=== PATIENT | female | born 1980 | race Hispanic/Latino ===

== ENCOUNTER 2018-10-16 05:49 | Observation (INO) | payer OTHER ==
[2018-10-10 13:17] LABS: Basophils % (Auto) 0.8 % (0.0-1.8); Eosinophils % (Auto) 0.9 % (0.0-4.3); Hematocrit 33.8 % (30.3-42.9); Hemoglobin 11.1 gm/dl (10.1-14.3); Lymphocytes % (Auto) 22.3 % (13.4-35.0); Mean Corpuscular HGB Conc 33 % (30-34); Mean Corpuscular Volume 84 fl (79-97); Monocytes # (Auto) 0.3 K/mm3 (0.0-0.8); Monocytes % (Auto) 7.6 % (0.0-7.3); Platelet Count 180 K/mm3 (140-440); Red Blood Count 4.03 M/mm3 (3.65-5.03); Red Cell Distribution Width 14.1 % (13.2-15.2)
--- NOTE | 2018-10-10 13:45 | Anesthesia Consultation ---
Anesthesia Consult and Med Hx Date of service: 10/16/18 - Airway Anesthetic Teeth Evaluation: Good ROM Head & Neck: Adequate Mental/Hyoid Distance: Adequate Mallampati Class: Class I Intubation Access Assessment: Probably Good - Pre-Operative Health Status ASA Pre-Surgery Classification: ASA2 Proposed Anesthetic Plan: General Nerve Block: TAP - Central Nervous System Hx Psychiatric Problems: No - Endocrine Hx Thyroid Disease: Yes (Thryoid nodules) - Hematic Hx Anemia: Yes - Other Systems Hx Cancer: No - Additional Comments Anesthesia Medical History Comments: Pt with thyroid nodules and goiter. Stable for several years-has annual MRI and she states unchanged from last years. No meds required. PE: Neck soft and supple; trachea appears midline. PAT nurse attempting to get thyroid MRI
--- NOTE | 2018-10-15 10:30 | History and Physical Report ---
History of Present Illness Date of examination: 10/10/18 Chief complaint: Menorrhagia History of present illness: This is a 38 years old female who presents with menstrual disorder. She complains of heavy bleeding, clotting and history of thyroid disease, but denies irregular menses, mid-cycle spotting, lack of menses, dysmenorrhea, history of ovarian cysts, history of fibroids, history of PCOS, history of bleeding disorder, lightheadedness, fatigue and cramping. Menstrual flow lasts > 7 days. Cycle interval varies however she bleeds 8-10 days with each cycle. Options have been reviewed and she desires to proceed with hysterectomy Vital Signs: Patient Profile: 38 Years Old Female LMP: 09/28/2018 Height: 69 inches (175.26 cm) Weight: 181 pounds BMI: 26.73 Menstrual History: LMP (date): 09/28/2018 Menarche: 11 On BCP's at conception: no Current Method of Contraception: BTL Date of Last Pap Smear: 01/24/2018 Past History : 3 Term Births: 3 Living Children: 3 # 1 Delivery date: 10/07/2011 Weeks Gestation: 39 Delivery type: Delivery location: [facility] weight: 7.13 Name: Dougie # 2 Delivery date: 2004 Weeks Gestation: 39 Delivery type: Delivery location: [facility] Sex: Female Name: Lisa # 3 Delivery date: 1997 Weeks Gestation: 39 Delivery type: Delivery location: [facility] Name: Noel RADIOACTIVITY TECHNICIAN History Uterine Surgery (not C/S): negative Operations: Breast Augmentation: C-sectionx2 Knee Arthroscopy (1995)(L) (L) 1999 (R) axillary surgery RADIOACTIVITY TECHNICIAN Surgery dx lsc Tubal Ligation Thyroid biopsies benign Abnormal PAP: positive Uterine Anomaly: negative TIN Exposure: negative Infertility: negative Infection History HIV Risk Eval: no TB exposure: no Personal hx. of genital herpes: yes Partner hx. of genital herpes: no Hx of STD: HSV Active Medications: None Current Allergies (reviewed today): CODEINE (Critical) Past Medical History: Reviewed history from 01/24/2018 and no changes required: Hyperhidrosis axillary Thyroid nodules benign Past Surgical History: Breast Augmentation: C-sectionx2 Knee Arthroscopy (1995)(L) (L) foot 1999 (R) axillary surgery RADIOACTIVITY TECHNICIAN Surgery dx lsc Tubal Ligation Thyroid biopsies benign Family History Summary: Reviewed history Last on 01/24/2018 and no changes required:10/15/2018 Other family member - Has No Family History of Biliary Tract Cancer - Entered On: 06/19/2015 Other family member - Has No Family History of Breast Cancer - Entered On: 06/19/2015 Other family member - Has No Family History of Brain Cancer - Entered On: 06/19/2015 Other family member - Has No Family History of Colon Cancer - Entered On: 06/19/2015 Other family member - Has No Family History of DVT/PE on OCP - Entered On: 06/19/2015 Other family member - Has No Family History of Kidney/Urinary Tract Cancer - Entered On: 06/19/2015 Other family member - Has No Family History of Ovarvian Cancer - Entered On: 06/19/2015 Other family member - Has No Family History of Pancreatic Cancer - Entered On: 06/19/2015 Other family member - Has No Family History of Stomach Cancer - Entered On: 06/19/2015 Other family member - Has No Family History of Small Bowel Cancer - Entered On: 06/19/2015 Other family member - Has No Family History of Uterine Cancer - Entered On: 06/19/2015 General Comments - FH: No Family History of Breast Cancer No Family History of Ovarian Cancer No Family History of DVT/PE on OCP No Family History of Colon Cancer Social History: Reviewed history from 06/19/2015 and no changes required: Patient is Smoking History: Patient has never smoked. Risk Factors: Smoked Tobacco Use: Never smoker Smokeless Tobacco Use: Never Passive smoke exposure: no Drug use: no HIV high-risk behavior: no Caffeine use: <1 drinks per day Alcohol use: no Exercise: no Seatbelt use: 100 % PAP Smear History: Date of Last PAP Smear: 01/24/2018 Review of Systems General Denies fever, chills, sweats, anorexia, fatigue, weakness, malaise, weight loss and sleep disorder. Complains of menorrhagia and abnormal vaginal bleeding. Denies vaginal discharge, incontinence, dysuria, hematuria, urinary frequency, amenorrhea, pelvic pain, genital sores, decreased libido, painful periods, painful sex, urinary urgency, hot flashes, vaginal dryness, vaginal itching and vaginal odor. CV Denies chest pains, palpitations, syncope, dyspnea on exertion, orthopnea, PND and peripheral edema. Resp Denies cough, dyspnea at rest, excessive sputum, hemoptysis, wheezing and pleurisy. GI Denies nausea, vomiting, diarrhea, constipation, change in bowel habits, abdominal pain, melena, hematochezia, jaundice, gas/bloating, indigestion/heartburn, dysphagia and odynophagia. Endo Denies cold intolerance, heat intolerance, polydipsia, polyphagia, polyuria and unusual weight change. Breast Denies left breast lump, right breast lump, nipple discharge, bloody dis charge from nipple, breast pain, abnormal mammogram and breast enlargement. MS Denies back pain, joint pain, joint swelling, muscle cramps, muscle weakness, stiffness, arthritis, sciatica, restless legs, leg pain at night and leg pain with exertion. Derm Denies rash, itching, dryness and suspicious lesions. Neuro Denies paralysis, paresthesias, headache, seizures, tremors, vertigo, transient blindness, frequent falls, frequent headaches and difficulty walking. Psych Denies depression, anxiety, irritability and mood swings. Eyes Denies blurring, diplopia, irritation, discharge, vision loss, eye pain and photophobia. ENT Denies earache, ear discharge, tinnitus, decreased hearing, nasal congestion, nosebleeds, sore throat and hoarseness. Allergy Denies urticaria, allergic rash, hay fever and recurrent infections. Heme Denies abnormal bruising, bleeding and enlarged lymph nodes. Physical Exam Appearance: well developed, well nourished, no acute distress Other Exams Lungs: no rales, rhonchi, or wheezes Heart: S1, S2, no murmur, rub, or gallop Abdomen: soft, non-tender, no masses, healed pfannestial incision Genitourinary Exam Vulva: normal, no lesions or discharge Urethral meatus: normal size and location, no lesions or discharge Urethra: no discharge Bladder: no cystocele Vagina: normal appearance, no discharge, lesions. No evidence of cystocele or rectocele. Cervix: normal appearance, no lesions, no discharge Uterus: fixed Adnexa: no masses or tenderness Impression & Recommendations: Problem # 1: Menorrhagia (ICD-626.2) (LCS31-M00.0) Labs and images reviewed. Diagnosis explained to patient . Questions answered. Discussed with patient various medical and surgical therapies common for treatment: Hormonal/medical therapy,endometrial ablation or hysterectomy. Orders: [facility] Vst Est [id number] ([id number]) Diagnosis explained to patient . Discussed with patient various medical, surgical and radiological therapies common for treatment including, but not limited to, ablation and hysterectomy. Discussed risks and benefits of laparotomy, laparoscopy, vaginal and robotic assisted approaches for hysterectomies. Patient desires definitive treatment in the form of robot assisted laparoscopic total hysterectomy. The risks and alternatives for this surgery were reviewed with the patient. She was informed of the risks of the surgery including, but not limited to, pain, infection, bleeding possibly heavy enough to require a blood transfusion with associated risks of infections (hepatitis and HIV) and transfusion reactions, possible damage to bowel, bladder or ureter(s). Patient understands that this surgery with make her sterile. Indications to abort a robotic/laparoscopic procedure and perform an open procedure were explained. She desireds ovarian conservation. She was informed she may require surgery later to have her ovaries removed for a benign or mailgnant condition. Pain expectations along with pre and postoperative pain management was discussed. Questions answered. The patient was instructed/informed the following: The normal length of hospital stay for this procedure. Nothing to eat or drink after midnight the evening prior to surgery. Clear liquids the day before surgery. Pre-op instruction sheets given. Wound care instructions given. Consent reviewed and signed. Patient voiced understanding and agrees with plan of care. Other Orders: Thyroid Stimulating Hormone (TSH) ([id number])([id number]) ([id number]) Medications and Allergies Allergies Allergy/AdvReac Type Severity Reaction Status Date / Time codeine Allergy N&V Verified 10/15/18 10:11 bandaids Allergy Blisters Uncoded 10/09/18 17:45 Home Medications Medication Instructions Recorded Confirmed Last Taken Type No Known Home Medications [No 10/09/18 10/09/18 Unknown History Reported Home Medications] Active Meds: Active Medications Celecoxib (Celebrex) 200 mg PO PREOP NR Stop: 10/16/18 09:00 Fentanyl (Sublimaze) 100 mcg IV ONCE PRN PRN Reason: sedation for nerve block Gabapentin (Neurontin) 300 mg PO PREOP NR Stop: 10/16/18 09:00 Lactated Ringer's (Lactated Ringers) 1,000 mls @ 100 mls/hr IV DIRECT ESTEFANY Cefazolin Sodium (Ancef/Sterile Water 2 Gm/20 Ml) 2 gm in 20 mls @ 80 mls/hr IV PREOP NR; Protocol Midazolam HCl (Versed) 2 mg IV PREOP NR Stop: 10/16/18 09:00 Exam Vital Signs Temp Pulse Resp BP Pulse Ox 97.6 F 68 18 138/85 100 10/10/18 13:00 10/10/18 13:00 10/10/18 13:00 10/10/18 13:00 10/10/18 13:00 Results - Labs 10/10/18 13:05 Assessment and Plan - Patient Problems (1) Menorrhagia Status: Chronic Qualifiers: Menorrahagia type: with regular cycle Qualified Code(s): N92.0 - Excessive and frequent menstruation with regular cycle Plan to address problem: Desires to proceed with hysterectomy
[~2018-10-16 05:49] MED LIST: ANCEF/STERILE WATER 2 GM/20 ML 2 GM/20 ML SYRINGE IV NR
[2018-10-16] MEDS ORDERED: SUBLIMAZE IV PRN (06:00)
[2018-10-16] MEDS ORDERED: NEURONTIN PO NR (06:00)
[2018-10-16] MEDS ORDERED: VERSED IV NR (06:00)
[2018-10-16] MEDS: LACTATED RINGERS 1,000 ML IV SCH ×2 (06:50→14:57)
[2018-10-16] MEDS ORDERED: MARCAINE-EPI 0.25%-1:200,000 INFILTRATI ONE (07:12)
[2018-10-16] MEDS ORDERED: XYLOCAINE 1% 20 mL ONE (07:12)
[2018-10-16] MEDS ORDERED: DECADRON ONE ×2 (07:12→08:51)
[2018-10-16] MEDS ORDERED: NEOSPORIN GU IR ONE ×2 (07:23→08:41)
[2018-10-16] MEDS ORDERED: XYLOCAINE MPF 2% ONE (07:27)
[2018-10-16] MEDS ORDERED: SUBLIMAZE ONE (07:27)
[2018-10-16] MEDS ORDERED: ZEMURON IV ONE (07:27)
[2018-10-16] MEDS ORDERED: DIPRIVAN 10 MG/ML IV ONE (07:28)
[2018-10-16] MEDS ORDERED: VERSED ONE (07:28)
--- NOTE | 2018-10-16 07:28 | Anesthesia Day of Surgery ---
Anesthesia Day of Surgery - Day of Surgery Patient Examined: Yes Patient H&P Reviewed: Yes Patient is NPO: Yes
[2018-10-16] MEDS ORDERED: NACL 0.9% IR ONE (08:42)
[2018-10-16] MEDS ORDERED: ZOFRAN ONE (08:51)
[2018-10-16] MEDS ORDERED: REGLAN ONE (08:51)
[2018-10-16] MEDS ORDERED: TORADOL ONE (09:15)
[2018-10-16] MEDS ORDERED: ROBINUL ONE (09:16)
[2018-10-16] MEDS ORDERED: BLOXIVERZ ONE (09:16)
[2018-10-16] MEDS ORDERED: LACTATED RINGERS 1,000 ML ONE (09:32)
--- NOTE | 2018-10-16 09:41 | Post Operative Note ---
Pre-op diagnosis: Menorrhagia Post-op diagnosis: same Findings: Grossly normal uterus, cervix, fallopian tubes; (L) paratubal cyst. pelvic adhesions Procedure: RALTH with GOVIND and (B) salpingectomy Anesthesia: GETA Surgeon: TITUS CASTILLO Estimated blood loss: minimal Pathology: list (uterus, cervix, (L) paratubal cyst, (B) fallopian tubes pelvic adhesions) Specimen disposition: to lab Condition: stable Disposition: PACU
[2018-10-16] MEDS ORDERED: DILAUDID ONE (09:51)
[2018-10-16] MEDS: DILAUDID IV PRN ×2 (10:05→10:15)
[2018-10-16] MEDS ORDERED: REGLAN PO PRN (10:57)
[2018-10-16] MEDS ORDERED: ZOFRAN IV PRN (10:57)
[2018-10-16] MEDS ORDERED: MORPHINE IV PRN (10:57)
[2018-10-16] MEDS ORDERED: REGLAN IV PRN (10:57)
[2018-10-16] MEDS ORDERED: NARCAN 0.4 MG/1 ML IV PRN (10:57)
[2018-10-16] MEDS ORDERED: ZOFRAN ODT PO PRN (10:57)
[2018-10-16] MEDS ORDERED: BENADRYL IV PRN (11:57)
--- NOTE | 2018-10-16 11:58 | Post Anesthesia Evaluation ---
- Post Anesthesia Evaluation Patient Participated: Yes Airway Patent: Yes Stable Respiratory Function: Yes Nausea/Vomiting: Yes (treated with IV antiemetics) Temp > 96.8F: Yes Pain Manageable: Yes Adequeate Hydration: Yes Anesthesia Complications: No
[2018-10-16] MEDS ORDERED: TRANSDERM-SCOP TD SCH (12:00)
[2018-10-16] MEDS ORDERED: ANCEF/NS 1 GM/50 ML 1 GM/50 ML BAG IV SCH (14:00)
[2018-10-16] MEDS: TORADOL IV SCH ×2 (14:54→21:45)
[2018-10-16] MEDS: ANCEF/NS 1 GM/50 ML 1 GM/50 ML BAG IV SCH ×2 (16:05→23:26)
[2018-10-16] MEDS: TYLENOL PO SCH ×2 (18:17→23:26)
--- NOTE | 2018-10-16 20:00 | Operative Report ---
Operative Report Operative Report: Date: 10/16/2018 Preoperative diagnosis: 1. Menorrhagia Postoperative diagnosis: 1. Menorrhagia Procedure: 1. Robot assisted laparoscopic total hysterectomy 2. Robotic-assisted laparoscopic bilateral salpingectomy Surgeon: Saray Collier MD Hot Box Spotter: Amparo Harrison CST Anesthesiologist: Dr. Benavides Anesthesia: General endotracheal anesthesia EBL: Approximately 100 mL Findings: Exam under anesthesia revealed cervix and uterus deviated to left. Uterus is sounded to 7 cm. Grossly normal interrupted bilateral fallopian tubes. Grossly normal ovaries. Procedure: Patient was taken to the OR and placed in the supine position. General anesthesia was induced and an oral gastric tube was placed. Her neck and head were placed on foam support. Foam eye protection with goggles were secured in place. Then foam face protection was placed and secured. Foam shoulder pads were then positioned on her shoulders for Trendelenburg positioning. She was then placed in dorsolithotomy position. Exam under anesthesia the above. The abdomen and vagina were then prepped and draped in the usual sterile fashion. Timeout was performed. A Ahumada catheter was inserted into the bladder with drainage of clear yellow urine. The operative speculum was introduced into the vagina and the anterior lip of the cervix was grasped with single-toothed tenaculum. The uterus was sounded to 7 cm. The cervix was progressively dilated to allow the large V care uterine manipulator. The bulb of the manipulator was inflated and the speculum and tenaculum were removed. The cup of the manipulator was placed around the cervix and the blue o ccluder of the manipulator was properly positioned in the vagina. A moist laparotomy sponge that was saturated with a solution of polymyxin and saline was placed in the vagina to ensure pneumoperitoneum. Sterile gloves were placed and attention was turned to the abdomen. A 10 mm vertical supraumbilical incision was made approximately 10 cm superior to the elevated fundus of the uterus. A 10 mm trocar with the laparoscope and camera attached was introduced through this incision under direct visualization. The abdomen was insufflated. No obvious bowel, bladder, ureteral, or major vascular injury was noted. The patient was then placed in steep Trendelenburg position and the following trochars were placed under direct visualization: 8 mm robotic trochars were placed through incisions made in the bilateral midclavicular lower abdominal region approximately 10 cm lateral and approximately 2 cm below the midline incision, and a 5 mm trocar was placed through an incision made in the right lower lateral pelvis approximately 2 cm superior to the iliac crest. The 10 mm laparoscope was then replaced by a 5 mm laparoscope that was placed through the 5 millimeter lateral trocar. The 12 mm trocar was then removed in the Santhosh Curtis fascial closure device was placed through the incision and a 0 Vicryl was placed through the fascia. Once the suture was secured the 12 mm trocar was reintroduced. Once the trochars were in the appropriate positions, the the [employer] Gallo robot system was engaged. The EndoShears and bipolar device was placed through the 8 mm trochars and positioned then attention was turned to the console. The uterus was elevated and bilateral salpingectomy was performed. Each tube was removed through the 5 mm trocar and sent to pathology in separate containers. The course of the ureters were noted. The utero-ovarian ligaments were clamped, cauterized and incised using 30 W of energy bilaterally. Then the round ligaments were clamped, cauterized and incised bilaterally. The anterior leaf of the broad ligament was elevated and careful blunt and sharp dissection the bladder flap was created and dissected away from the lower uterine segment and cervix. The posterior leaf of the broad ligament was dissected away from the uterine vessels bilaterally The cup of the uterine manipulator was palpated both anteriorly and posteriorly. Course of the ureters was visualized and was confirmed to be away from the operative field. The uterine vessels were then clamped and cauterized bilaterally. Blanching of the uterus was then noted. Attention was again turned to the anterior lower uterine segment and the bladder was confirmed to be away from the operative field. Then attention was turned again to the posterior where the cup of the manipulator was palpated and a colpotomy was performed down to the cup. The incision was extended in the lateral position the uterine vessels that were again clamped and cauterized and incised. Continuing along the cup of the manipulator in a circumferential manner the colpotomy was completed. The uterus and cervix were then removed through the vaginal incision. The pelvis was irrigated with warm normal saline. A moist laparotomy sponge was placed in the vagina to maintain pneumoperitoneum. The vagina cuff was reapproximated using V LOC 180 suture in a simple running stitch. Then a J stitch was performed to secure the suture. Again the pelvis was copiously irrigated with polymixin in warm normal saline. The laparotomy sponge was removed from the vagina. No bowel, bladder, ureteral or major vascular injury was noted. Once hemostasis was noted, Alessia was applied to the operative field to ensure hemostasis. Again hemostasis was noted. The procedure was ended the instruments were removed. The incisions were approximated using 4-0 monocryl in a subcuticular manner. The vagina was inspected, no bleeding or lacerations noted. She had drainage of clear yellow urine into the ahumada bag. The patient tolerated the procedure well and was taken to recovery in stable condition.
--- NOTE | 2018-10-16 20:34 | Progress Note ---
Assessment and Plan - Patient Problems (1) History of robot-assisted laparoscopic hysterectomy Current Visit: Yes Status: Acute Plan to address problem: Operative findings and procedure explained, expected hospital course and plan of care discusses. Questions encouraged and answered, she voiced understanding and agrees with POC (2) Status post bilateral salpingectomy Current Visit: Yes Status: Acute (3) Menorrhagia Current Visit: No Status: Resolved Qualifiers: Menorrahagia type: with regular cycle Qualified Code(s): N92.0 - Excessive and frequent menstruation with regular cycle Subjective Date of service: 10/16/18 Patient Reports: Positive: no new complaints, tolerating a regular diet, afebrile Narrative: Resting in bed with at her in room , no complaints, she denies bleeding. Objective Vital Signs - 12hr 10/16/18 10/16/18 10/16/18 09:36 09:40 09:45 Temperature 98.2 F Pulse Rate 75 65 61 Pulse Rate [ Apical] Respiratory 16 12 10 L Rate Blood Pressure 123/64 121/67 120/56 Blood Pressure [Left] O2 Sat by Pulse 100 100 100 Oximetry 10/16/18 10/16/18 10/16/18 09:50 09:55 10:00 Temperature Pulse Rate 63 67 61 Pulse Rate [ Apical] Respiratory 15 13 13 Rate Blood Pressure 130/64 140/75 124/65 Blood Pressure [Left] O2 Sat by Pulse 100 100 100 Oximetry 10/16/18 10/16/18 10/16/18 10:15 11:30 16:48 Temperature 98.3 F Pulse Rate 72 81 Pulse Rate [ 80 Apical] Respiratory 18 18 18 Rate Blood Pressure 111/66 Blood Pressure 120/67 [Left] O2 Sat by Pulse 100 Oximetry - General physical appearance well developed, well nourished, no distress - Respiratory normal expansion, normal respiratory effort, clear to auscultation - Abdomen soft, bowel sounds normal, not distended - Integumentary other (incision c/d/i) - Psychiatric oriented to time, oriented to person, oriented to place, speech is normal - Labs 10/10/18 13:05
[2018-10-17] MEDS: LACTATED RINGERS 1,000 ML IV SCH (02:15)
[2018-10-17] MEDS: TORADOL IV SCH ×2 (04:30→10:07)
[2018-10-17] MEDS: TYLENOL PO SCH (05:04)
[2018-10-17 05:56] LABS: Hematocrit 31.7 % (30.3-42.9); Hemoglobin 10.4 gm/dl (10.1-14.3)
--- NOTE | 2018-10-17 08:19 | Progress Note ---
Assessment and Plan Pt sitting in bed. Espinoza recently removed. Ambulating w/o difficulty. Using incentive spirometer as instructed. VSSAF. Post-op H/H 10.4/31.7. Continue post- op pathway. ANGELITO Felix - Patient Problems (1) History of robot-assisted laparoscopic hysterectomy Current Visit: Yes Status: Acute Plan to address problem: Continue pathway. (2) Status post bilateral salpingectomy Current Visit: Yes Status: Acute Plan to address problem: Continue pathway Subjective - Subjective Date of service: 10/17/18 (BORING MACHINE OPERATOR note) Principal diagnosis: Postop #1 s/p robotic hyst and salpingectomy Patient reports: pain well controlled, ambulating normally, no dizzy ambulation, no nauseated Objective - Vital Signs Latest vital signs: Vital Signs Temp Pulse Pulse Resp BP BP Pulse Ox 10/17/18 04:45 98.5 F 67 16 112/60 97 10/17/18 00:53 98.7 F 64 16 102/60 97 10/16/18 19:49 98.4 F 73 18 100/55 98 10/16/18 16:48 98.3 F 81 18 120/67 10/16/18 11:30 80 18 10/16/18 10:15 72 18 111/66 100 10/16/18 10:00 61 13 124/65 100 10/16/18 09:55 67 13 140/75 100 10/16/18 09:50 63 15 130/64 100 10/16/18 09:45 61 10 L 120/56 100 10/16/18 09:40 65 12 121/67 100 10/16/18 09:36 98.2 F 75 16 123/64 100 Intake and Output 10/16/18 10/17/18 10/17/18 23:59 07:59 15:59 Intake Total 530 1260 Output Total 1800 850 Balance -1270 410 Intake: IV 50 1000 ANCEF/NS 1 GM/50 ML 1 gm 50 In 50 ml @ 100 mls/hr IV Q8H ESTEFANY Rx#:[id number] Lactated Ringers 1,000 ml 1000 @ 100 mls/hr IV DIRECT ESTEFANY Rx#:[id number] Oral 480 Intake, Free Water 260 Output: Urine 1800 850 Indwelling Catheter 1800 850 Other: Total, Intake Amount 480 Total, Output Amount 1800 150 Voiding Method Indwelling Catheter - Exam Lungs: Present: Normal air movement
[2018-10-17 09:07] VITALS: BP 103/65
--- NOTE | 2018-10-17 09:52 | Discharge Summary ---
Providers - Providers Date of Admission: 10/16/18 09:41 Date of discharge: 10/17/18 Attending physician: TITUS CASTILLO Hospitalization Condition: Good Hospital course: Unremarkable Disposition: DC-01 TO HOME OR SELFCARE - Discharge Diagnoses (1) History of robot-assisted laparoscopic hysterectomy Status: Acute (2) Status post bilateral salpingectomy Status: Acute (3) Menorrhagia Status: Resolved Qualifiers: Menorrahagia type: with regular cycle Qualified Code(s): N92.0 - Excessive and frequent menstruation with regular cycle Core Measure Documentation - Palliative Care Palliative Care/ Comfort Measures: Not Applicable - Core Measures Any of the following diagnoses?: none Exam - Constitutional Vitals: Temp Pulse Resp BP Pulse Ox 98.5 F 65 18 103/65 97 10/17/18 08:25 10/17/18 08:25 10/17/18 08:25 10/17/18 08:25 10/17/18 04:45 General appearance: Present: no acute distress - Respiratory Respiratory effort: normal Respiratory: bilateral: CTA - Cardiovascular Rhythm: regular - Extremities Extremities: no ischemia, No edema (nontender) - Abdominal General gastrointestinal: Present: soft, non-distended, normal bowel sounds (+flatus according to patient) - Integumentary Integumentary: Present: clear, warm, dry (incisions c/d/i, no s/s infection) Plan Activity: other (No sex, no driving, ambulate on your property ~1mile a day, void frequently. ) Weight Bearing Status: Full Weight Bearing Diet: regular (Eat small meals frequently, drink ~80oz water a day, no fatty, spicy, salty foods) Wound: open to air, keep clean and dry Special Instructions: no heavy lifting (greater than 25lbs) Follow up with: HEIKE GONZALEZ [Other] - 7 Days TITUS CASTILLO MD [Staff Physician] - (as scheduled) Prescriptions: Ibuprofen [Motrin 800 MG tab] 800 mg PO TID PRN #30 tablet PRN Reason: Pain
== END 2018-10-17 11:15 | disposition home or self-care (01) ==
LOC: OR 05:49 → OB 09:41
PROVIDERS: ADMIT Obstetrics & Gynecology; ATTEND Obstetrics & Gynecology
DX: N92.0 Excessive and frequent menstruation with regular cycle (principal)
CPT/HCPCS: 36415; 58552; 64450; 81025; 85014; 85018; 85025; 86850; 86900; 86901; 88305; 88307; 96365; 96366; 96375; 96376; A4217; G0378; J0690; J1100; J1170; J1200; J1885; J2250; J2405; J2704; J2710; J2765; J3010; J7120; S2900; 88302; J2270